=== PATIENT | female | born 1960 | race Asian ===

== ENCOUNTER 2021-05-02 21:33 | Emergency (ER) | payer MEDICAID ==
[~2021-05-02] VITALS: Ht 149.9 cm; Wt 43.6 kg
[2021-05-02 23:07] LABS: EOSINOPHILS % (AUTO) 0.6 % (1.0-6.0); LYMPHOCYTES # (AUTO) 1.5 K/uL (1.0-4.8); LYMPHOCYTES % (AUTO) 14.5 % (22.0-44.0); MONOCYTES # (AUTO) 0.3 K/uL (0.1-1.0); RED CELL DISTRIBUTION WIDTH 13.7 % (11.5-14.5)
[2021-05-02] MEDS ORDERED: GABA-1181 PO (23:08)
[2021-05-02] MEDS ORDERED: AMLO-258 PO (23:08)
[2021-05-02 23:10] LABS: BASOPHILS % (AUTO) 0.5 % (0.0-2.0); HEMATOCRIT 45.6 % (36-46); HEMOGLOBIN 15.3 g/dL (12.0-16.0); MEAN CORPUSCULAR HEMOGLOBIN 29.6 pg (26.0-34.0); MEAN CORPUSCULAR HGB CONC 33.5 G/dL (31.0-37.0); MEAN CORPUSCULAR VOLUME 88 fL (80-100); MONOCYTES % (AUTO) 3.1 % (2.0-9.0); NEUTROPHILS # (AUTO) 8.3 K/uL (1.8-7.7); NEUTROPHILS % (AUTO) 81.3 % (40.0-70.0); PLATELET COUNT (AUTO) 304 K/uL (150-450); RED BLOOD CELL COUNT(AUTO) 5.16 MIL/uL (4.00-5.20)
[2021-05-02 23:16] LABS: ANION GAP 11 mmol/L (8-16); CALCIUM, TOTAL 9.1 mg/dL (8.8-10.5); CARBON DIOXIDE 29 mmol/L (22-29); CHLORIDE 101 mmol/L (98-107); CREATININE 0.54 mg/dL (0.60-1.30); GLOMERULAR FILTR. RATE CALC > 60 mL/min (>60); GLUCOSE,RANDOM 175 mg/dL (70-110); POTASSIUM 3.3 mmol/L (3.5-5.1); SODIUM SERUM 141 mmol/L (136-145); UREA NITROGEN, BLOOD 12 mg/dL (7-18)
[2021-05-02 23:23] LABS: ALANINE AMINOTRANSFERASE 32 U/L (12-78); ALBUMIN 4.8 g/dL (3.4-5.0); ALKALINE PHOSPHATASE 115 U/L (46-116); ASPARTATE AMINOTRANSFERASE 26 U/L (15-37); BILIRUBIN,TOTAL 0.2 mg/dL (0.1-1.0); CREATINE KINASE, TOTAL ONLY 74 U/L (26-192); INR 0.9 (0.9-1.1); PROTHROMBIN TIME 10.1 SEC (9.4-11.6); TOTAL PROTEIN, SERUM 8.8 g/dL (6.4-8.2)
[2021-05-02 23:44] LABS: B-TYPE NATRIURETIC PEPTIDE 46 pg/mL (0-100)
[2021-05-03] MEDS ORDERED: MECLIZINE HCL 25 MG TABLET PO ONE (01:15)
[2021-05-03 02:17] VITALS: BP 119/77
[2021-05-03 02:43] LABS: APPEARANCE,URINE CLEAR (CLEAR); BILIRUBIN,URINE NEGATIVE (NEGATIVE); GLUCOSE, URINE (UA) 100 mg/dL (NEGATIVE); KETONES,URINE 40 mg/dL (NEGATIVE); LEUKOCYTE ESTERASE ,URINE NEGATIVE (NEGATIVE); NITRATE,URINE NEGATIVE (NEGATIVE); OCCULT BLOOD,URINE NEGATIVE (NEGATIVE); PROTEIN,URINE NEGATIVE (NEGATIVE); UROBILINOGEN,URINE 0.2 mg/dL (<=1.0)
[2021-05-03 02:54] LABS: BACTERIA,URINE None Seen /HPF (None Seen); RBC,URINE None Seen /HPF (0-2); WBC,URINE 0-2 /HPF (0-5)
== END 2021-05-03 02:39 | disposition home or self-care (01) ==
LOC: EMS 21:33
DX: R42 Dizziness and giddiness (principal); R11.10 Vomiting, unspecified; I10 Essential (primary) hypertension; Z91.013 Allergy to seafood
CPT/HCPCS: 71045; 80053; 81001; 81003; 82550; 83880; 84484; 85025; 85610; 85730; 93005; 99285; 36415-L1; 36415-TC